=== PATIENT | male | born 1945 | race Caucasian/White ===

== ENCOUNTER 2016-05-29 05:35 | Outpatient (CLI) | payer MEDICARE, BC ==
[~2016-05-29] VITALS: Ht 170.2 cm; Wt 90.9 kg
[~2016-05-29 05:35] MED LIST: ASPIRIN EC81 M1 PO; CALAN SR240 MG PO; CIPRO500 MG PO; FLAGYL500 MG PO; HYDROCODONE-APA1 TAB PO; LIPITOR40 MG PO; PAMELOR 25 MG C25 MG PO; PROSCAR5 MG PO; TOPAMAX100 MG PO; ZESTRIL40 MG PO
[2016-05-29 06:43] LABS: BASOPHILS 0.6 % (0.0-2.0); EOSINOPHILS 5.2 % (0-7); HEMATOCRIT 42.7 % (42.0-54.0); HEMOGLOBIN 14.2 g/dL (13.5-17.5); IMMATURE GRANULOCYTES 0.1 % (0-5); LYMPHOCYTES 30.1 % (15-50); MCH 28.9 pg (26.0-34.0); MCHC 33.3 g/dL (31.0-37.0); MCV 86.8 fL (80.0-100.0); MEAN PLATELET VOLUME 10.5 fL (7.4-10.4); MONOCYTES 9.1 % (2-11); NEUTROPHILS 54.9 % (40-80); PLATELET COUNT 307 10x3/uL (130-400); RBC 4.92 10x6/uL (4.20-6.10); RDW 14.4 % (11.5-14.5); WBC 8.8 10x3/uL (4.8-10.8)
[2016-05-29] MEDS ORDERED: COZAAR100 MG PO (06:45)
[2016-05-29 06:53] VITALS: BP 137/82; Ht 170.2 cm; Wt 90.9 kg
[2016-05-29] MEDS ORDERED: MIRALAX17 GM PO (06:56)
[2016-05-29] MEDS ORDERED: NEXIUM20 MG PO (06:56)
[2016-05-29 07:00] LABS: APTT 26.2 SECONDS (22.8-39.4)
[2016-05-29 07:04] LABS: CALCIUM 10.1 mg/dL (8.5-10.1); CREATININE - SERUM 1.2 mg/dL (0.6-1.3)
--- NOTE | 2016-05-29 07:20 | NUR ---
0775 PATIENT CONCERNED ABOUT HIS SLEEP APNEA DURING PROCEDURE. INFORMED CARLOS IN SPECIALS OF PT. CONCERNS
--- NOTE | 2016-05-29 12:13 | NUR ---
1200 ULTRASOUND COMPLETE. CALLED FOR ORDERES
--- NOTE | 2016-05-29 13:27 | NUR ---
1300 CONSUMED APPROX 90% DIET; DENIES NAUSEA; TO B/R WITH ASSISTANCE; DENIES NAUSEA; IV DC,D 1320 DISCHARGE INSTRUCTIONS REVIEWED WITH PATIENT; VERBALIZED UNDERSTANDING
== END 2016-05-29 13:20 | disposition home or self-care (01) ==
LOC: D.OPS 05:35 → D.CT 08:00 → D.OPS 13:20
PROVIDERS: Specialist
DX: D72.829 Elevated white blood cell count, unspecified (principal)

== ENCOUNTER → 2016-06-12 09:16 | Outpatient (CLI) | payer MEDICARE, BC ==
[2016-05-29 06:53] VITALS: BMI 31.4
[~2016-06-12 09:16] MED LIST changes: +COZAAR100 MG PO; +MIRALAX17 GM PO; +NEXIUM20 MG PO
== END | disposition home or self-care (01) ==
LOC: D.MRI 08:30
DX: K76.9 Liver disease, unspecified (principal)

== ENCOUNTER 2016-11-06 20:07 | Emergency (ER) | payer MEDICARE, BC ==
[2016-05-29 06:53] VITALS: BMI 31.4
[2016-11-06 20:59] LABS: BASOPHILS 0.4 % (0-2); EOSINOPHILS 2.9 % (0-7); HEMATOCRIT 46.6 % (42.0-54.0); HEMOGLOBIN 15.4 g/dL (13.5-17.5); IMMATURE GRANULOCYTES 0.5 % (0-5); LYMPHOCYTES 36.9 % (15-50); MCH 28.8 pg (26.0-34.0); MCV 87.3 fL (80.0-100.0); MEAN PLATELET VOLUME 10.8 fL (7.4-10.4); MONOCYTES 11.7 % (2-11); NEUTROPHILS 47.6 % (40-80); RBC 5.34 10x6/uL (4.20-6.10); RDW 14.2 % (11.5-14.5)
[2016-11-06 21:07] LABS: ALBUMIN 4.1 g/dL (3.4-5.0); ALKALINE PHOSPHATASE 115 U/L (46-116); ALT (SGPT) 45 U/L (10-68); BILIRUBIN - TOTAL 0.32 mg/dL (0.2-1.3); CALC OSMOLALITY 284 mosm/kg (275-300); CALCIUM 10.2 mg/dL (8.5-10.1); CARBON DIOXIDE 29.3 mmol/L (21.0-32.0); CHLORIDE - SERUM 102 mmol/L (98-107); GLUCOSE 121 mg/dL (74-106); POTASSIUM - SERUM 4.9 mmol/L (3.5-5.1); PROTEIN - SERUM 7.7 g/dL (6.4-8.2); SODIUM 141 mmol/L (136-145); UREA NITROGEN 21 mg/dL (7-18); eGFR NON AFRICAN AMERICAN 78 mL/min (90-120)
[2016-11-06 21:21] LABS: PLATELET COUNT 410 10x3/uL (130-400)
[2016-11-06 21:23] LABS: CKMB 0.8 U/L (0.0-3.6); CREATINE KINASE 95 UL (21-232); TROPONIN-I < 0.017 ng/mL (0.000-0.060)
[2016-11-06 22:45] LABS: APPEARANCE CLEAR (CLEAR); BACTERIA FEW /hpf (NONE SEEN); BILIRUBIN NEGATIVE (NEGATIVE); COLOR YELLOW (YELLOW); EPITHELIAL CELLS RARE /hpf (0-5); GLUCOSE NEGATIVE (NEGATIVE); KETONE NEGATIVE (NEGATIVE); LEUKOCYTE ESTERASE TRACE (NEGATIVE); NITRITE NEGATIVE (NEGATIVE); PH 5.5 (5.0-6.0); PROTEIN NEGATIVE (NEGATIVE); RED CELLS - URINE OCC /hpf (0-5); SPECIFIC GRAVITY 1.015 (1.005-1.020); UROBILINOGEN NORMAL (NORMAL); WHITE CELLS - URINE OCC /hpf (0-5)
== END 2016-11-06 22:59 | disposition home or self-care (01) ==
LOC: D.ER 20:07
PROVIDERS: Emergency Medicine
DX: R07.89 Other chest pain (principal); I10 Essential (primary) hypertension; R00.1 Bradycardia, unspecified

== ENCOUNTER → 2017-01-09 09:56 | Outpatient (CLI) | payer MEDICARE, BC ==
[2016-05-29 06:53] VITALS: BMI 31.4
== END | disposition home or self-care (01) ==
LOC: D.CT 09:56
DX: R10.9 Unspecified abdominal pain (principal)

== ENCOUNTER → 2018-04-16 07:44 | Outpatient (CLI) | payer MEDICARE, BC ==
[2016-05-29 06:53] VITALS: BMI 31.4
== END | disposition home or self-care (01) ==
LOC: D.US 07:44
DX: R10.11 Right upper quadrant pain (principal)